=== PATIENT | female | born 1980 | race Caucasian/White ===

== ENCOUNTER → 2018-08-18 | Outpatient (REF) | payer OTHER | LOC: M SFHCLERA 16:20 | PROVIDERS: ATTEND Physician Assistant | DX: J02.9 Acute pharyngitis, unspecified (principal) ==

== ENCOUNTER → 2018-12-25 | Outpatient (CLI) | payer OTHER | LOC: M RAD 08:21 | PROVIDERS: ATTEND Physician Assistant Medical | DX: M75.41 Impingement syndrome of right shoulder (principal); Z53.8 Procedure and treatment not carried out for other reasons ==

== ENCOUNTER → 2019-01-11 | Outpatient (REF) | payer OTHER ==
[2019-01-11 16:18] LABS: ALT/SGPT 26 U/L (12-78); BILIRUBIN,TOTAL 0.4 MG/DL (0.2-1.0); BLOOD UREA NITROGEN 16 MG/DL (7-18); C REACTIVE PROTEIN QUANTITATIV < 0.30 MG/DL (0.00-0.30); CALCIUM LEVEL 8.6 MG/DL (8.5-10.1); CARBON DIOXIDE LEVEL 24 MEQ/L (21-32); CHLORIDE LEVEL 107 MEQ/L (98-107); CREATININE FOR GFR 0.89 MG/DL (0.55-1.30); GLOMERULAR FILTRATION RATE > 60.0 (>60); GLUCOSE, FASTING 85 MG/DL (70-100); POTASSIUM SERUM 4.1 MEQ/L (3.5-5.1); RHEUMATOID FACTOR QUANT < 10.0 IU/ML (<15.0); SODIUM LEVEL 139 MEQ/L (136-145); TOTAL PROTEIN 7.1 GM/DL (6.4-8.2); URIC ACID 4.1 MG/DL (2.6-6.0)
[2019-01-11 16:30] LABS: BASO % 0.7 % (0.0-1.0); EOS # 0.1 10^3/uL (0.0-0.5); EOS % 3.2 % (0.0-3.0); HEMATOCRIT 40.2 % (36.0-47.0); HEMOGLOBIN 13.2 g/dl (12.0-15.5); LYMPH % 22.8 % (24.0-44.0); MEAN CORPUSCULAR HGB CONC 32.8 g/dl (32.0-36.5); MEAN CORPUSCULAR VOLUME 97.6 fl (80.0-96.0); MONO # 0.4 10^3/uL (0.0-0.8); NEUTROPHILS # 2.8 10^3/uL (1.5-8.5); NEUTROPHILS % 64.1 % (36.0-66.0); PLATELET COUNT, AUTOMATED 246 10^3/uL (150-450); RED BLOOD COUNT 4.12 10^6/uL (4.00-5.40); WHITE BLOOD COUNT 4.4 10^3/uL (4.0-10.0)
[2019-01-11 17:00] LABS: ERYTHROCYTE SEDIMENTATION RATE 10 mm/hr (0-20)
== END ==
LOC: M LABDRAW1 15:31
PROVIDERS: ATTEND Physician Assistant Medical
DX: M75.41 Impingement syndrome of right shoulder (principal)

== ENCOUNTER → 2019-08-22 | Outpatient (CLI) | payer OTHER ==
[~2019-08-22] MED LIST: FLON1SPR NARES
== END ==
LOC: M LABSMTC 09:59
PROVIDERS: ATTEND Anesthesiology
DX: Z03.818 Encounter for observation for suspected exposure to other biological agents ruled out (principal); Z11.59 Encounter for screening for other viral diseases
CPT/HCPCS: C9803; U0003

== ENCOUNTER 2019-08-25 12:32 | Day surgery (SDC) | payer OTHER ==
[~2019-08-25] VITALS: Ht 172.7 cm; Wt 85.7 kg
[~2019-08-25 12:32] MED LIST changes: +LIDOCAINE 2% 100MG/5ML SDV (FOR ANES.) As Ordered ONE; +LR 1,000 ML IV ONE; +MIDAZOLAM INJ 2MG/2ML VIAL (J2250 PER 1MG) As Ordered ONE; +fentaNYL 100 MCG/2 ML INJECTION (J3010) As Ordered ONE; +propofoL 200 MG/20 ML VIAL As Ordered ONE
[2019-08-25] MEDS ORDERED: propofoL 200 MG/20 ML VIAL As Ordered ONE (13:57)
[2019-08-25] MEDS ORDERED: dexameTHASONE 4 MG/ML 1ML VIAL (J1100 PER 1MG) As Ordered ONE (13:58)
[2019-08-25] MEDS ORDERED: KETOROLAC 60MG 2ML VIAL As Ordered ONE (13:58)
[2019-08-25] MEDS ORDERED: ONDANSETRON 4MG/2ML VIAL As Ordered ONE ×2 (13:58→16:25)
[2019-08-25] MEDS ORDERED: ACETAMINOPHEN 1000MG 100ML IV BTL (OFIRMEV) (J0131 PER 10MG) As Ordered ONE (14:09)
[2019-08-25] MEDS ORDERED: PERCOCET 5MG/325MG TAB As Ordered ONE (14:57)
[2019-08-25] MEDS ORDERED: fentaNYL 100 MCG/2 ML INJECTION (J3010) As Ordered ONE (14:57)
[2019-08-25] MEDS ORDERED: ONDANSETRON 4MG/2ML VIAL IV PRN ×2 (15:00→16:45)
[2019-08-25] MEDS ORDERED: LR 1,000 ML IV SCH ×3 (15:00→16:45)
[2019-08-25] MEDS ORDERED: METOCLOPRAMIDE INJ 10MG/2ML VIAL (J2765 PER 1) IV PRN ×2 (15:00→16:45)
[2019-08-25] MEDS ORDERED: NORCO, ANEXSIA 5/325MG TABLET (HYDROcodone/ACETAMINOPHEN) PO PRN (15:00)
[2019-08-25] MEDS: PERCOCET 5MG/325MG TAB PO PRN ×2 (15:01→15:35)
[2019-08-25] MEDS: fentaNYL 100 MCG/2 ML INJECTION (J3010) IV PRN ×4 (15:01→15:24)
[2019-08-25] MEDS ORDERED: fentaNYL 100 MCG/2 ML INJECTION (J3010) IV PRN (16:45)
[2019-08-25] MEDS ORDERED: LIDOCAINE 5% OINT 30 GM TOP ONE (16:45)
[2019-08-25] MEDS ORDERED: PERCOCET 5MG/325MG TAB PO PRN (16:45)
[2019-08-25 18:10] VITALS: BP 113/55
[2019-08-25] MEDS ORDERED: IBUPROFEN 600MG TAB PO PRN (20:00)
--- NOTE | 2019-08-30 17:54 | RO ---
DATE OF SURGERY: 08/25/2019 PREOPERATIVE DIAGNOSIS/INDICATION FOR SURGERY: Persistent painful right Bartholin cyst. POSTOPERATIVE DIAGNOSIS: Persistent painful right Bartholin cyst. PROCEDURE: Removal of right Bartholin gland. SURGEON: Dr. Clair Mckinney ANESTHESIA: General endotracheal anesthesia. SALES MARKETING: There was no surgical first assistant. SPECIMEN: Bartholin gland. BRIEF DESCRIPTION OF PROCEDURE AND FINDINGS: Noris was brought to the operating room. Her right Bartholin cyst was palpable. With traction on the tissues and pressure behind the Bartholin's, we brought it up as close to the surface on the medial aspect of the labia as we could, and then we incised over it with a scalpel, carefully dissected the gland out as far as we could go with the gland intact. We really could not get a good online services manager on it. It was intact, so we drained it. Some clear, mucusy fluid was released. It was not purulent. I was then able to put my finger inside the cyst sac and then dissect around that, anteriorly and posteriorly. At the blood supply, there was some bleeding, as expected in these cases. We oversewed this with #2-0 Vicryl and then having controlled the deeper bleeding, did a multilayer deep to shallow closure of the wound that was created by its removal, and then #3-0 Vicryl was used for the skin with good approximation and hemostasis at these levels, and the procedure then ended. ESTIMATED BLOOD LOSS FOR PROCEDURE: About 30 mL. FLUID REPLACEMENT: Was crystalloid. COMPLICATIONS: None. CONDITION/DISPOSITION: Noris tolerated the procedure well and was recovering in the recovery room in good condition.
== END 2019-08-25 18:10 | disposition home or self-care (01) ==
LOC: M SDC 12:32
PROVIDERS: ATTEND Obstetrics & Gynecology
DX: N75.0 Cyst of Bartholin's gland (principal); F41.9 Anxiety disorder, unspecified; Z88.0 Allergy status to penicillin
CPT/HCPCS: 56740; 81025; 88304; J0131; J1100; J1885; J2250; J2405; J3010